=== PATIENT | male | born 1935 | race African-American/Black ===

== ENCOUNTER 2018-03-20 10:01 | Emergency (ER) | payer MEDICARE ==
[~2018-03-20] VITALS: Ht 167.6 cm; Wt 59.4 kg
[2018-03-20] MEDS ORDERED: KETOROLAC TROMETHAMINE 30 MG/ML VIAL IV STA (10:42)
[2018-03-20] MEDS ORDERED: METOCLOPRAMIDE HCL 10 MG/2ML VIAL IV ONE (10:45)
[2018-03-20] MEDS ORDERED: SODIUM CHLORIDE 0.9% 500ML 500 ML IV ONE (10:45)
[2018-03-20] MEDS ORDERED: LABETALOL HCL 5 MG/ML 20ML VIAL IV STA ×2 (10:51→12:13)
== END 2018-03-20 13:24 | disposition home or self-care (01) ==
LOC: FSED 10:01
DX: R51 Headache (principal); I10 Essential (primary) hypertension
CPT/HCPCS: 70450; 80053; 81003; 85025; 99284; J1885; J2765; J3490; J7040

== ENCOUNTER 2018-07-09 13:31 | Emergency (ER) | payer MEDICARE ==
[~2018-07-09] VITALS: Ht 170.2 cm; Wt 59.9 kg
[2018-07-09] MEDS ORDERED: DOXAZOSIN MESYLA2 MG PO (13:59)
[2018-07-09] MEDS ORDERED: ASPIRIN325 MG PO (13:59)
[2018-07-09] MEDS ORDERED: GABAPENTIN300 MG PO (14:00)
[2018-07-09] MEDS ORDERED: NIACIN100 MG PO (14:01)
[2018-07-09] MEDS ORDERED: LISINOPRIL10 MG PO (14:01)
[2018-07-09] MEDS ORDERED: CARAFATE1 GM/10 ML PO (14:02)
[2018-07-09] MEDS ORDERED: PATANOL5 ML (14:03)
[2018-07-09] MEDS ORDERED: TRAZODONE HCL50 MG PO (14:03)
[2018-07-09 14:16] VITALS: BP 170/84
== END 2018-07-09 14:18 | disposition home or self-care (01) ==
LOC: FSED 13:31
DX: I10 Essential (primary) hypertension (principal); M54.81 Occipital neuralgia; Z87.891 Personal history of nicotine dependence
CPT/HCPCS: 99282